=== PATIENT | female | born 2005 | race Caucasian/White ===

== ENCOUNTER 2025-06-19 19:58 | Inpatient (IN) | payer MEDICAID, SELFPAY ==
--- NOTE | ~2025-06-19 | MR_ITS ---
EXAMINATION: MRCP HISTORY: choledocholithiasis COMPARISON: There are no prior studies available for comparison. TECHNIQUE: Axial gradient echo in and out of phase T1, axial T2 and fat suppressed T2, and coronal haste T2 with fat saturation images were obtained through the abdomen. 3D MRCP Reconstructed images and thick slab imaging of the biliary tree were obtained. FINDINGS: There is no significant signal loss within the liver on opposed phase imaging to suggest steatosis. There is no intrahepatic biliary ductal dilatation. No foci of abnormal signal intensity are identified. There is cholelithiasis. There is a small amount of pericholecystic fluid. No gallbladder wall thickening. The common bile duct is normal in caliber. No intraluminal filling defects are identified to suggest choledocholithiasis. The pancreas has an unremarkable unenhanced appearance. The pancreatic duct is normal in caliber.. The spleen, adrenals, and kidneys are unremarkable. There are prominent lymph nodes in the right lower quadrant measuring up to 13 mm in size. The visualized bones demonstrate normal marrow signal intensity. MR/MR MRCP IMPRESSION: 1. Cholelithiasis and a small amount of pericholecystic fluid. If there is clinical concern for acute cholecystitis, HIDA scan could be performed. 2. No evidence of choledocholithiasis. Electronically signed by: Sonu Hart MD 06/20/2025 12:52 PM EDT
[2025-06-19 20:06] VITALS: BP 116/76; PULSE 76; RESP 20; TEMP 36.6; O2SAT 97; BMI 30.4
[2025-06-19 20:25] LABS: MANUAL DIFF FLAG NO
[2025-06-19 20:27] LABS: Hematocrit 38.2 % (37.0-47.0); Hemoglobin 12.0 g/dl (12.0-16.0); Imm Gran Abs Auto 0.02 X10*3/uL (0.00-0.03); Imm Gran Pct Auto 0.3 % (0.0-0.4); Lymphocytes Absolute Auto 1.3 X10*3/uL (1.2-4.9); Mean Corpuscular HGB Conc 31.4 g/dl (31.0-35.0); Mean Corpuscular Hemoglobin 25.4 pg (27.0-33.0); Mean Corpuscular Volume 80.9 fL (80.0-98.0); NRBC Abs Auto 0.000 X10*3/uL (0.0-0.012); NRBC Pct Auto 0.0 /100WBC (0.0-0.2); Platelet Count 396 X10*3/uL (160-400); Red Blood Count 4.72 X10*6/uL (4.20-5.50); White Blood Count 6.6 X10*3/uL (4.8-10.8)
[2025-06-19 20:44] LABS: Alanine Aminotransferase 605 U/L (0-31); Albumin Level 4.3 g/dL (3.5-5.0); Alkaline Phosphatase 124 U/L (39-117); Anion Gap 12 (12-20); Aspartate Amino Transferase 618 U/L (5-31); Blood Urea Nitrogen 8 mg/dL (9-16); Calcium 9.5 mg/dL (8.4-10.2); Carbon Dioxide 26 mmol/L (22-29); Chloride 107 mmol/L (96-108); Creatinine Clr Calc Pharmacy 125.4; Estimated Glomerular Filt Rate > 60; Potassium 3.7 mmol/L (3.3-5.1); Sodium 141 mmol/L (135-145); Total Protein 7.8 g/dL (6.5-8.0)
--- NOTE | 2025-06-19 23:40 | ED.ABDPAIN ---
HPI - Abdominal Pain General Chief Complaint: Abdominal Pain Stated Complaint: upper right abd pain/goes to the back/vomit/sob Time Seen by Provider: 06/19/25 23:10 History of Present Illness ED Provider: Ryan Hernandez MD HPI narrative: 20-year-old female with right upper quadrant pain mostly postprandial and in the evenings over the last 2 weeks. No jaundice. No usha-colored stools. No prior surgical or other abdominal history. She denies nausea vomiting fever night sweats or other constitutional symptoms Related Data Allergies Allergy/AdvReac Type Severity Reaction Status Date / Time No Known Allergies Allergy Verified 06/19/25 20:08 [facility] Social History Social History Patient Tobacco Use Status: Never used Tobacco Smoked in Last 30 Days: No Use of substances other than those prescribed or required for medical reasons: No Advance Directives: No Advance Directives Information Provided: Yes Nutrition Risks: No Nutritional Risk Patient : No Physical Exam ED Exam Exam: EXAM: Gen: Alert, awake, well appearing, well hydrated. Head: Atraumatic Eyes: Anicteric, Normal conjunctiva. ENT: Moist mucosa, no pallor. ? Neck: Supple. Skin: ?No observable rash or bruising on exposed or examined skin Respiratory: Breathing comfortably, No distress.Clear to auscultation bilaterally, symmetric chest expansion, No wheeze, rales, ronchi. Cardiovascular: Regular rate and rhythm. No murmurs or rub. Well perfused periphery, warm extremities. No edema. ? Abdominal: Mild right upper quadrant tenderness.. Soft, no objective distension. No palpable masses or obvious organomegaly. ?No guarding, no rebound tenderness or other peritoneal findings. : No flank tenderness. Neuro: Alert. Gross movement of all extremities intact. ? Psych: Calm. Cooperative. MSK: No grossly visible deformity. Vital signs: See flowsheet Vital Signs: Vital Signs - 24 hr 06/19/25 20:06 Temperature 97.8 F Pulse Rate 76 Respiratory Rate 20 Blood Pressure 116/76 Pulse Oximetry 97 Oxygen Delivery Method Room Air BMI result Body Mass Index 30.4 Procedures Procedure Narrative Procedure Narrative: EMERGENCY ULTRASOUND INTERPRETATION- Limited Point of Care Biliary [This study was ordered, performed, and interpreted by myself. The study reveals: Impression: Evidence of gallstones and dilated CBD. No signs of cholecystitis [Indication: RUQ PAIN Gallbladder: Small and dependent/shadowing gallstones in the fundus. NO WALL THICKENING > 4MM, NO PERICHOLECYSTIC FLUID, NOT GROSSLY DILATED/HYDROPIC. -Additional: WALL MEASUREMENT: Less than 4 mm CBD MEASURMENT IF OBTAINED: 8.7 mm Performed by: Ryan Hernandez MD Images were stored CPT:09369] Sample still images below of GB with stones and CBD. Additional clips and images formally stored in the PACS system. Medical Decision Making Medical Decision Making MDM Narrative: Medical Decision Making: Young healthy female with postprandial and evening right upper quadrant pain going on for about 2 weeks. Working diagnosis is choledocholithiasis/cholelithiasis. She has mild transaminitis, mild alk-phos elevation and slight bilirubin elevation. She is anicteric and well-appearing. No signs of cholecystitis or cholangitis. CBD is 8.7 mm no distinct stone seen though this is very likely to be the cause of obstruction Overnight hours and given the patient's well appearance I think GI consultation and likely MRCP and/or ERCP can be deferred to the a.m.. I will make the patient NPO Preliminary Favored Differential Diagnosis: Choledocholithiasis, cholelithiasis, cholecystitis, PUD, gastritis among additional considered etiologies Testing Interpreted Independently: ?See below for details Radiology or Lab testing Results Reviewed: ?See below for details Consults: ?See below for details Independent Historians/External Chart Reviews: ?See below for details Social Determinants of Health Impacting MDM/Planning: ?See below for details Consult Healthcare Provider Management of the patient was discussed with: Hospitalist Lab Data MDM Lab Attestation statement: I reviewed the patient's lab results. 06/20/25 04:40 06/19/25 20:20 Labs: Lab Results 06/19/25 Range/Units 20:20 WBC 6.6 (4.8-10.8) X10*3/uL RBC 4.72 (4.20-5.50) X10*6/uL Hgb 12.0 (12.0-16.0) g/dl Hct 38.2 (37.0-47.0) % MCV 80.9 (80.0-98.0) fL MCH 25.4 L (27.0-33.0) pg MCHC 31.4 (31.0-35.0) g/dl RDW 14.3 (11.0-16.0) % Plt Count 396 (160-400) X10*3/uL MPV 9.2 L (9.4-12.3) fL Immature Gran % (Auto) 0.3 (0.0-0.4) % Neut % (Auto) 71.7 (45-73) % Lymph % (Auto) 19.4 L (20-40) % Vernon % (Auto) 7.1 (2-11) % Eos % (Auto) 0.9 (0-4) % Baso % (Auto) 0.6 (0-2) % Lymph # (Auto) 1.3 (1.2-4.9) X10*3/uL [place] # (Auto) 0.5 (0.1-1.2) X10*3/uL Eos # (Auto) 0.1 (0.0-0.4) X10*3/uL Baso # (Auto) 0.0 (0.0-0.2) X10*3/uL Abs Immat Gran (auto) 0.02 (0.00-0.03) X10*3/uL Absolute Neuts (auto) 4.8 (2.0-8.3) x10*3/uL Absolute Nucleated RBC 0.000 (0.0-0.012) X10*3/uL Nucleated RBC % (auto) 0.0 (0.0-0.2) /100WBC Sodium 141 (135-145) mmol/L Potassium 3.7 (3.3-5.1) mmol/L Chloride 107 (96-108) mmol/L Carbon Dioxide 26 (22-29) mmol/L Anion Gap 12 (12-20) BUN 8 L (9-16) mg/dL Creatinine 0.68 (0.5-1.4) mg/dL Estim Creat Clear Calc 125.4 Estimated GFR > 60 Random Glucose 101 (60-115) mg/dL Calcium 9.5 (8.4-10.2) mg/dL Total Bilirubin 1.8 H (0.0-1.0) mg/dL AST 618 H (5-31) U/L ALT 605 H (0-31) U/L Alkaline Phosphatase 124 H (39-117) U/L Total Protein 7.8 (6.5-8.0) g/dL Albumin 4.3 (3.5-5.0) g/dL Medications Administered Generic Name Dose Route Start Last Admin Trade Name Freq PRN Reason Stop Dose Admin Dextrose/Sodium Chloride 1,000 mls @ 100 mls/hr 06/20/25 00:15 06/20/25 01:14 D51/2ns IVCONT 100 mls/hr .Q10H BRO Administration Discharge Plan Discharge Clinical Impression: Abdominal pain
--- NOTE | 2025-06-20 00:21 | P.HPHOSP_ITS ---
History of Present Illness Date of Service: 06/20/25 Chief Complaint: abd pain 20-year-old female with no significant past medical history presented to the hospital today with a chief complaint of right upper quadrant abdominal pain. Patient mentioned that for few weeks she has been having right upper quadrant abdominal pain which is intermittent in nature happens once a week associated nausea and resolves last for about a day. But over the past couple of weeks she has been having more increased frequency at least 3 times a week and last night she had severe episode that is why she became to the ER for further evaluation. Denies any fevers. Denies any sick contacts. Denies any diarrhea. Denies any chest pain or palpitations. Denies any abdominal pain at the time of my interview. Review of all other systems is negative except mentioned above ER course: Per ER team, patient noted to have right upper quadrant tenderness; bedside ultrasound showed concerns for choledocholithiasis. Liver enzymes elevated. PMFSH Social History Patient Tobacco Use Status: Never used Tobacco Smoked in Last 30 Days: No Use of substances other than those prescribed or required for medical reasons: No Advance Directives: No Advance Directives Information Provided: Yes Nutrition Risks: No Nutritional Risk Patient : No Meds Allergies Allergy/AdvReac Type Severity Reaction Status Date / Time No Known Allergies Allergy Verified 06/19/25 20:08 Active Medications: Current Medications Enoxaparin Sodium (Enoxaparin Sodium 40 Mg/0.4 Ml Syringe) 40 mg SUBCUT Q24H BRO Hydromorphone HCl (Hydromorphone Hcl 1 Mg/Ml Syringe) 0.5 mg IVPUSH Q4H PRN; Protocol PRN Reason: Pain, Severe (Pain Scale 7-10) Dextrose/Sodium Chloride (D51/2ns) 1,000 mls @ 100 mls/hr IVCONT .Q10H BRO Polyethylene Glycol (Polyethylene Glycol 3350 17 Gm Powd.Pack) 17 gm PO DAILY PRN PRN Reason: Constipation Sodium Chloride (0.9 % Sodium Chloride Flush 3 Ml Syringe) 3 ml IVFLUSH QSHIFT BRO Physical Exam 2 Vital Signs and Narrative: Vital Signs: Last Vital Signs Temp 97.8 F 06/19/25 20:06 Pulse 76 06/19/25 20:06 Resp 20 06/19/25 20:06 BP 116/76 06/19/25 20:06 Pulse Ox 97 06/19/25 20:06 O2 Del Method Room Air 06/19/25 20:06 BMI result Body Mass Index 30.4 Gen: Appears be in no acute distress HEENT: NCAT, Moist mucosa. Pulmonary: Vesicular breath sounds, fair air entry CVS: Normal S1-S2 Abdomen: BS+, Soft, Nontender Extremities: Warm well perfused Neuro: Alert and awake. Results Labs 06/20/25 04:40 06/20/25 04:40 Labs: Laboratory Results - last 24 hr 06/19/25 20:20 MCV 80.9 MCH 25.4 L MCHC 31.4 RDW 14.3 Plt Count 396 MPV 9.2 L Immature Gran % (Auto) 0.3 Neut % (Auto) 71.7 Lymph % (Auto) 19.4 L [place] % (Auto) 7.1 Eos % (Auto) 0.9 Baso % (Auto) 0.6 Lymph # (Auto) 1.3 [place] # (Auto) 0.5 Eos # (Auto) 0.1 Baso # (Auto) 0.0 Abs Immat Gran (auto) 0.02 Absolute Neuts (auto) 4.8 Absolute Nucleated RBC 0.000 Nucleated RBC % (auto) 0.0 Anion Gap 12 Estim Creat Clear Calc 125.4 Estimated GFR > 60 Random Glucose 101 Calcium 9.5 Total Bilirubin 1.8 H AST 618 H ALT 605 H Alkaline Phosphatase 124 H Total Protein 7.8 Albumin 4.3 Assessment and Plan (1) Abdominal pain: Qualifiers: Abdominal location: right upper quadrant Qualified Code(s): R10.11 - Right upper quadrant pain Status: Acute Plan 20-year-old female with no significant past medical history presented to the hospital today with a chief complaint of right upper quadrant abdominal pain. Admitted for following Right upper quadrant abdominal pain: Gallstones: Dilated CBD: Transaminitis: Suspected choledocholithiasis: Pain control Trend liver enzymes Gastroenterology consult MRCP Lipase ordered Acute hepatitis panel DVT prophylaxis: Lovenox Code status: Full code Quality Stroke Does the patient have a stroke diagnosis?: No VTE Prior VTE?: No VTE Risk Level:: Medical - moderate - high VTE Device Contraindication: Treatment Not Indicated VTE Drug Contraindication: N/A - Med Ordered
[2025-06-20] MEDS: Dextrose 5 % and 0.45 % NaCl 1,000 ML 100 ML IVCONT ×3 (01:14→22:54)
[2025-06-20 01:16] VITALS: BP 117/69; PULSE 85; RESP 18; TEMP 36.7; O2SAT 98
[2025-06-20 05:21] LABS: MANUAL DIFF FLAG NO
[2025-06-20 05:22] LABS: Hematocrit 36.3 % (37.0-47.0); Hemoglobin 11.6 g/dl (12.0-16.0); Imm Gran Abs Auto 0.02 X10*3/uL (0.00-0.03); Imm Gran Pct Auto 0.3 % (0.0-0.4); Lymphocytes Absolute Auto 1.6 X10*3/uL (1.2-4.9); Mean Corpuscular HGB Conc 32.0 g/dl (31.0-35.0); Mean Corpuscular Hemoglobin 25.8 pg (27.0-33.0); Mean Corpuscular Volume 80.7 fL (80.0-98.0); NRBC Abs Auto 0.000 X10*3/uL (0.0-0.012); NRBC Pct Auto 0.0 /100WBC (0.0-0.2); Platelet Count 376 X10*3/uL (160-400); Red Blood Count 4.50 X10*6/uL (4.20-5.50); White Blood Count 7.1 X10*3/uL (4.8-10.8)
[2025-06-20 05:47] LABS: Alanine Aminotransferase 586 U/L (0-31); Albumin Level 3.9 g/dL (3.5-5.0); Alkaline Phosphatase 141 U/L (39-117); Anion Gap 10 (12-20); Aspartate Amino Transferase 423 U/L (5-31); Blood Urea Nitrogen 7 mg/dL (9-16); Calcium 9.0 mg/dL (8.4-10.2); Carbon Dioxide 25 mmol/L (22-29); Chloride 109 mmol/L (96-108); Creatinine Clr Calc Pharmacy 135.4; Estimated Glomerular Filt Rate > 60; Potassium 4.2 mmol/L (3.3-5.1); Sodium 140 mmol/L (135-145); Total Protein 7.2 g/dL (6.5-8.0)
[2025-06-20 07:07] LABS: Lipase 553 U/L (8-78)
--- NOTE | 2025-06-20 07:39 | P.CNGI_ITS ---
History of Present Illness Data of Consult Service Date: 06/20/25 Requesting physician: Tony Vargas Primary Care Provider: None Physician HPI Reason for consult: Choledocholithiasis 20-year-old healthy female seen at [facility] ED on 06/19/25 with right upper quadrant abdominal pain. Patient reported a 2 month hx of intermittent RUQ pain and nausea once a week associated nausea and last for about a day. She noted increased frequency of abdominal pain to at least 3 times a week over the past few weeks. Last night she had severe episode which lasted all day and pt came to the ER for further evaluation. Pt tried acetaminophen and ibuprofen for the pain which was not helpful Patient denied fevers, sick contacts, diarrhea, chest pain or palpitations. Labs revealed elevated LFTs Patient admits to vaping and denies ETOH abuse or taking marijuana She works at [employer]. Pt's Mom had a Lap Emily for gallstones. She denies known family history of colon polyps or GI malignancy. ER course: Per ER team, patient noted to have right upper quadrant tenderness; bedside ultrasound showed concerns for choledocholithiasis. Review of Systems 2 Review of Systems: Yes all other systems are reviewed and are [facility] Social History Social History Patient Tobacco Use Status: Never used Tobacco Smoked in Last 30 Days: No Use of substances other than those prescribed or required for medical reasons: No Advance Directives: No Advance Directives Information Provided: Yes Nutrition Risks: No Nutritional Risk Patient : No service: No Meds Allergies Allergy/AdvReac Type Severity Reaction Status Date / Time No Known Allergies Allergy Verified 06/19/25 20:08 Active Medications: Current Medications Acetaminophen (Acetaminophen 325 Mg Tablet) 650 mg PO Q6H PRN PRN Reason: Pain, Mild 1-3,fever,headache Calcium Carbonate (Calcium Carbonate 750 Mg Tab.Chew) 750 mg PO Q4H PRN PRN Reason: Heartburn Enoxaparin Sodium (Enoxaparin Sodium 40 Mg/0.4 Ml Syringe) 40 mg SUBCUT Q24H BRO Hydromorphone HCl (Hydromorphone Hcl 1 Mg/Ml Syringe) 0.5 mg IVPUSH Q4H PRN; Protocol PRN Reason: Pain, Severe (Pain Scale 7-10) Dextrose/Sodium Chloride (D51/2ns) 1,000 mls @ 100 mls/hr IVCONT .Q10H BRO Last Admin: 06/20/25 01:14 Dose: 100 mls/hr Magnesium Hydroxide (Milk Of Magnesia 30 Ml Oral.Susp) 30 ml PO DAILY PRN PRN Reason: Constipation Melatonin (Melatonin 3 Mg Tablet) 6 mg PO BEDTIME PRN PRN Reason: Insomnia Polyethylene Glycol (Polyethylene Glycol 3350 17 Gm Powd.Pack) 17 gm PO DAILY PRN PRN Reason: Constipation Sodium Chloride (0.9 % Sodium Chloride Flush 3 Ml Syringe) 3 ml IVFLUSH QSHIFT [facility] Last Admin: 06/20/25 07:25 Dose: Not Given Physical Exam 2 Vital Signs: Vital Signs: Last Vital Signs Temp 98.1 F 06/20/25 01:16 Pulse 85 06/20/25 01:16 Resp 18 06/20/25 01:16 BP 117/69 06/20/25 01:16 Pulse Ox 98 06/20/25 01:16 O2 Del Method Room Air 06/20/25 01:16 BMI result Body Mass Index 30.4 Const: General: healthy appearing and no acute distress Nutritional Appearance: obese Orientation/consciousness: patient oriented x3 L imitations: no limitations HEENT: Head: Yes normal to inspection Ears: hearing grossly normal bilaterally Eyes: Sclerae: sclerae normal Pupils: Equal, round and reactive pupils present Neck: Neck: Yes normal visual inspection Chest: Chest palpation & inspection: normal inspection of the chest Resp: Effort & Inspection: normal respiratory effort Auscultation: clear to auscultation bilaterally Cardio: Palpation: normal PMI Rate: regular rate Rhythm: regular rhythm Heart sounds: S1 normal heart sound present, S2 normal heart sound present and no murmurs GI: Palpation (GI): Soft to palpation, nontender and No hepatosplenomegaly present Auscultation: normal bowel sounds Rectal Exam - Female: deferred Skin: General skin exam: no rashes or lesions noted Neuro: General: patient oriented x3, gait normal and moves all extremities Cranial nerves: Yes Equal, round and reactive pupils present Psych: Appearance: grossly normal Mental Status: mental status grossly normal Results Labs 06/20/25 04:40 06/20/25 04:40 Labs: Short CBC 06/19/25 06/20/25 Range/Units 20:20 04:40 WBC 6.6 7.1 (4.8-10.8) X10*3/uL Hgb 12.0 11.6 L (12.0-16.0) g/dl Hct 38.2 36.3 L (37.0-47.0) % Plt Count 396 376 (160-400) X10*3/uL BMP 06/19/25 06/20/25 20:20 04:40 Sodium 141 140 Potassium 3.7 4.2 Chloride 107 109 H Carbon Dioxide 26 25 BUN 8 L 7 L Creatinine 0.68 0.63 Calcium 9.5 9.0 Liver Function 06/19/25 06/20/25 Range/Units 20:20 04:40 Total Bilirubin 1.8 H 2.7 H (0.0-1.0) mg/dL AST 618 H 423 H (5-31) U/L ALT 605 H 586 H (0-31) U/L Alkaline Phosphatase 124 H 141 H (39-117) U/L Albumin 4.3 3.9 (3.5-5.0) g/dL Assessment and Plan (1) Elevated LFTs: Status: Acute (2) Gallstone: Qualifiers: Cholecystitis presence: with cholecystitis Cholecystitis acuity: acute Biliary obstruction: without biliary obstruction Qualified Code(s): K80.00 - Calculus of gallbladder with acute cholecystitis without obstruction Status: Acute (3) Abdominal pain: Qualifiers: Abdominal location: right upper quadrant Qualified Code(s): R10.11 - Right upper quadrant pain Status: Acute Plan 20-year-old healthy female admitted to [facility] on 06/19/25 with 2 month history of intermittent right upper quadrant abdominal pain and nausea. Labs showed elevated LFTs and slightly elevated lipase. A bedside ultrasound showed choledocholithiasis. Patient reports resolution of abdominal pain indicating she likely passed a stone. 06/20/25 MRCP SHOWED: 1. Cholelithiasis and a small amount of pericholecystic fluid. If there is clinical concern for acute cholecystitis, HIDA scan could be performed. 2. No evidence of choledocholithiasis. RECOMMENDATIONS: 1. Agree with IV pain medications and anti-emetics for recurrent pain and nausea 2. Evaluation for Lap Emily by general surgery. Procedures Date of Service Date of Service: 06/20/25
--- NOTE | 2025-06-20 08:12 | PHA.MEDREC ---
Pharmacy Consult ? Medication Reconciliation Pharmacy has completed the medication reconciliation. pt confirmed no home meds
--- NOTE | 2025-06-20 09:00 | PC.NURSE ---
Pt made aware that she needs to remain NPO until after MRI
[2025-06-20 09:24] LABS: HBS Num1 4.94 mIU/mL (0-7.99); HBc Num1 0.07 S/CO (0.00-0.79); HBsAGNum1 0.38 S/CO (0.00-0.99); Hepatitis A Antibody IgM 0.32 Index (0-0.79); Hepatitis B Surface Antigen Negative (Negative); ~HepC Num1 0.09 S/CO (0.00-0.79); ~Hepatitis A Antibody IgM Nonreactive (Nonreactive); ~Hepatitis B Surface Antibody NONREACTIVE (Nonreactive); ~Hepatitis C Antibody Nonreactive (Nonreactive)
--- NOTE | 2025-06-20 11:35 | PC.NURSE ---
Pt completed MRI screening form, form sent to MRI . pt resting quietly, verbalizes no needs at this time
--- NOTE | 2025-06-20 12:15 | PC.NURSE ---
Pt off the floor to MRI
[2025-06-20 13:14] VITALS: BP 116/73; PULSE 86; RESP 18; TEMP 36.9; O2SAT 99
--- NOTE | 2025-06-20 13:36 | P.PNIM_ITS ---
Subjective Subjective Date of Service: 06/20/25 Interval History: No pain this morning Physical Exam 2 Vital Signs: Vital Signs: Last Vital Signs Temp 98.5 F 06/20/25 13:14 Pulse 86 06/20/25 13:14 Resp 18 06/20/25 13:14 BP 116/73 06/20/25 13:14 Pulse Ox 99 06/20/25 13:14 O2 Del Method Room Air 06/20/25 13:14 BMI result Body Mass Index 30.4 Const: Other: General: AO X 3, no acute distress Resp: CTA bilateral CVS: S1,S2,RRR GI: +BS, NT, no distention Skin: No rash Neuro: motor grossly intact Psych: appropriate affect Objective Data Active Medications Acetaminophen (Acetaminophen 325 Mg Tablet) 650 mg PO Q6H PRN PRN Reason: Pain, Mild 1-3,fever,headache Calcium Carbonate (Calcium Carbonate 750 Mg Tab.Chew) 750 mg PO Q4H PRN PRN Reason: Heartburn Enoxaparin Sodium (Enoxaparin Sodium 40 Mg/0.4 Ml Syringe) 40 mg SUBCUT Q24H [facility] Last Admin: 06/20/25 08:30 Dose: 40 mg Documented By: DARRICK Hydromorphone HCl (Hydromorphone Hcl 1 Mg/Ml Syringe) 0.5 mg IVPUSH Q4H PRN; Protocol PRN Reason: Pain, Severe (Pain Scale 7-10) Dextrose/Sodium Chloride (D51/2ns) 1,000 mls @ 100 mls/hr IVCONT .Q10H [facility] Last Admin: 06/20/25 11:23 Dose: 100 mls/hr Documented By: DARRICK Magnesium Hydroxide (Milk Of Magnesia 30 Ml Oral.Susp) 30 ml PO DAILY PRN PRN Reason: Constipation Melatonin (Melatonin 3 Mg Tablet) 6 mg PO BEDTIME PRN PRN Reason: Insomnia Polyethylene Glycol (Polyethylene Glycol 3350 17 Gm Powd.Pack) 17 gm PO DAILY PRN PRN Reason: Constipation Sodium Chloride (0.9 % Sodium Chloride Flush 3 Ml Syringe) 3 ml IVFLUSH QSHIFT [facility] Last Admin: 06/20/25 07:25 Dose: Not Given Documented By: DARRICK Non-Admin Reason: IV Running Labs 06/20/25 04:40 06/20/25 04:40 Labs: Laboratory Results - last 24 hr 06/19/25 06/20/25 06/20/25 20:20 04:40 08:43 MCV 80.9 80.7 MCH 25.4 L 25.8 L MCHC 31.4 32.0 RDW 14.3 14.3 Plt Count 396 376 MPV 9.2 L 9.6 Immature Gran % (Auto) 0.3 0.3 Neut % (Auto) 71.7 65.6 Lymph % (Auto) 19.4 L 22.2 [place] % (Auto) 7.1 9.2 Eos % (Auto) 0.9 2.0 Baso % (Auto) 0.6 0.7 Lymph # (Auto) 1.3 1.6 [place] # (Auto) 0.5 0.7 Eos # (Auto) 0.1 0.1 Baso # (Auto) 0.0 0.1 Abs Immat Gran (auto) 0.02 0.02 Absolute Neuts (auto) 4.8 4.6 Absolute Nucleated RBC 0.000 0.000 Nucleated RBC % (auto) 0.0 0.0 Anion Gap 12 10 L Estim Creat Clear Calc 125.4 135.4 Estimated GFR > 60 > 60 Random Glucose 101 110 Calcium 9.5 9.0 Total Bilirubin 1.8 H 2.7 H AST 618 H 423 H ALT 605 H 586 H Alkaline Phosphatase 124 H 141 H Total Protein 7.8 7.2 Albumin 4.3 3.9 Lipase 553 H Hepatitis A IgM Ab Nonreactive Hep Bs Antigen Negative Hep Bs Antibody NONREACTIVE Hep B Core Total Ab Nonreactive Hepatitis C Ab (EIA) Nonreactive Assessment and Plan (1) Gallstone: Status: Acute Plan 20-year-old female with no significant past medical history presented to the hospital today with a chief complaint of right upper quadrant abdominal pain. Admitted for following Right upper quadrant abdominal pain Gallstones pancreatitis Dilated CBD: Transaminitis: LFTs trending down Suspected choledocholithiasis MRCP negative Pain control Trend liver enzymes Gastroenterology recommend surgery consult Surgery consult for CCY DVT prophylaxis: Lovenox Code status: Full code Quality Stroke Does the patient have a stroke diagnosis?: No VTE Prior VTE?: No VTE Risk Level:: Medical - moderate - high VTE Device Contraindication: Treatment Not Indicated VTE Drug Contraindication: N/A - Med Ordered
--- NOTE | 2025-06-20 14:33 | MHC.CM.PN ---
Patient lives in a home w/ her mother. Functionally independent. Denies use of DME or services. PCP @ [facility] No HCP. CM provided information and offered assistance. Patient declined. DP: Home self care. Car in lot for self transport if safe to do so. Mother can also transport. CM will continue to follow.
--- NOTE | 2025-06-20 16:10 | P.CONGS_ITS ---
History of Present Illness Consult details Consult date: 06/20/25 Requesting physician: Alberto Martin Narrative: 20-year-old female patient presenting with a several week history of abdominal pain located mainly in the epigastrium and right upper quadrant. At 1st the pain was episodic and seemed to be associated with her diet. Over the past week the pain has become more frequent and severe and associated with nausea and vomiting without fever or chills. She denies any diarrhea or constipation. She subsequently presented to the emergency department for further evaluation and was noted to be tender in the right upper quadrant. Laboratories revealed elevated LFTs including bilirubin. MRI performed today revealed gallstones within the gallbladder as well as pericholecystic fluid consistent with acute cholecystitis. Common bile duct dilatation and common bile duct stones were not identified. Surgical consultation was requested for possible cholecystectomy. The patient currently feels improved with no abdominal pain, nausea or vomiting. She reports being hungry. Review of Systems 2 Review of Systems: Yes all other systems are reviewed and are negative PMFSH Social History Social History Patient Tobacco Use Status: Never used Tobacco Smoked in Last 30 Days: No Use of substances other than those prescribed or required for medical reasons: No Advance Directives: No Advance Directives Information Provided: Yes Nutrition Risks: No Nutritional Risk Patient : No service: No Meds Allergies Allergy/AdvReac Type Severity Reaction Status Date / Time No Known Allergies Allergy Verified 06/19/25 20:08 Active Medications: Current Medications Acetaminophen (Acetaminophen 325 Mg Tablet) 650 mg PO Q6H PRN PRN Reason: Pain, Mild 1-3,fever,headache Calcium Carbonate (Calcium Carbonate 750 Mg Tab.Chew) 750 mg PO Q4H PRN PRN Reason: Heartburn Enoxaparin Sodium (Enoxaparin Sodium 40 Mg/0.4 Ml Syringe) 40 mg SUBCUT Q24H [facility] Last Admin: 06/20/25 08:30 Dose: 40 mg Hydromorphone HCl (Hydromorphone Hcl 1 Mg/Ml Syringe) 0.5 mg IVPUSH Q4H PRN; Protocol PRN Reason: Pain, Severe (Pain Scale 7-10) Dextrose/Sodium Chloride (D51/2ns) 1,000 mls @ 100 mls/hr IVCONT .Q10H [facility] Last Admin: 06/20/25 11:23 Dose: 100 mls/hr Magnesium Hydroxide (Milk Of Magnesia 30 Ml Oral.Susp) 30 ml PO DAILY PRN PRN Reason: Constipation Melatonin (Melatonin 3 Mg Tablet) 6 mg PO BEDTIME PRN PRN Reason: Insomnia Polyethylene Glycol (Polyethylene Glycol 3350 17 Gm Powd.Pack) 17 gm PO DAILY PRN PRN Reason: Constipation Sodium Chloride (0.9 % Sodium Chloride Flush 3 Ml Syringe) 3 ml IVFLUSH QSHIFT [facility] Last Admin: 06/20/25 07:25 Dose: Not Given Physical Exam 2 Vital Signs: Vital Signs: Last Vital Signs Temp 98.5 F 06/20/25 13:14 Pulse 86 06/20/25 13:14 Resp 18 06/20/25 13:14 BP 116/73 06/20/25 13:14 Pulse Ox 99 06/20/25 13:14 O2 Del Method Room Air 06/20/25 13:14 BMI result Body Mass Index 30.4 Const: General: cooperative and no acute distress Nutritional Appearance: w ell nourished Orientation/consciousness: patient oriented x3 Limitations: no limitations HEENT: Head: Yes normocephalic and Yes atraumatic Ears: hearing grossly normal bilaterally Resp: Effort & Inspection: normal respiratory effort, no audible wheezes, no cough and no respiratory distress Cardio: Jugular venous distension: no JVD GI: Inspection: Yes normal to inspection Palpation (GI): Soft to palpation, nontender, no guarding, not rigid and No hepatosplenomegaly present P ercussion: Yes normal to percussion Auscultation: normal bowel sounds R ectal Exam - Female: deferred Skin: Other: Warm, dry, no rash Neuro: General: patient oriented x3 Extrem: General: Yes no clubbing, cyanosis or edema Results Labs 06/20/25 04:40 06/20/25 04:40 Labs: Abnormal lab results 06/19/25 06/20/25 Range/Units 20:20 04:40 Hgb 11.6 L (12.0-16.0) g/dl Hct 36.3 L (37.0-47.0) % MCH 25.4 L 25.8 L (27.0-33.0) pg MPV 9.2 L (9.4-12.3) fL Lymph % (Auto) 19.4 L (20-40) % Chloride 109 H (96-108) mmol/L Anion Gap 10 L (12-20) BUN 8 L 7 L (9-16) mg/dL Total Bilirubin 1.8 H 2.7 H (0.0-1.0) mg/dL AST 618 H 423 H (5-31) U/L ALT 605 H 586 H (0-31) U/L Alkaline Phosphatase 124 H 141 H (39-117) U/L Lipase 553 H (8-78) U/L Short CBC 06/19/25 06/20/25 Range/Units 20:20 04:40 WBC 6.6 7.1 (4.8-10.8) X10*3/uL Hgb 12.0 11.6 L (12.0-16.0) g/dl Hct 38.2 36.3 L (37.0-47.0) % Plt Count 396 376 (160-400) X10*3/uL BMP 06/19/25 06/20/25 20:20 04:40 Sodium 141 140 Potassium 3.7 4.2 Chloride 107 109 H Carbon Dioxide 26 25 BUN 8 L 7 L Creatinine 0.68 0.63 Calcium 9.5 9.0 Liver Function 06/19/25 06/20/25 Range/Units 20:20 04:40 Total Bilirubin 1.8 H 2.7 H (0.0-1.0) mg/dL AST 618 H 423 H (5-31) U/L ALT 605 H 586 H (0-31) U/L Alkaline Phosphatase 124 H 141 H (39-117) U/L Albumin 4.3 3.9 (3.5-5.0) g/dL All other labs normal. Assessment and Plan (1) Elevated LFTs: Status: Acute (2) Gallstone: Qualifiers: Cholecystitis presence: with cholecystitis Cholecystitis acuity: acute Biliary obstruction: without biliary obstruction Qualified Code(s): K80.00 - Calculus of gallbladder with acute cholecystitis without obstruction Status: Acute (3) Abdominal pain: Qualifiers: Abdominal location: right upper quadrant Qualified Code(s): R10.11 - Right upper quadrant pain Status: Acute Plan 20-year-old female patient presenting with a recurrent episodes of biliary colic found on workup to have elevated LFTs, gallstones but no evidence of common bile duct stone. Findings are suggestive of possible acute cholecystitis due to cholelithiasis. I discussed the treatment options including dietary restriction verses laparoscopic or possible open cholecystectomy. I reviewed the procedure, risks, and alternatives in detail and she consents to a laparoscopic or possible open cholecystectomy. She has been added onto the operative schedule for tomorrow. She may have clear liquids tonight until midnight. Procedures Date of Service Date of Service: 06/20/25
[2025-06-20 17:34] VITALS: BP 114/76; PULSE 93; RESP 18; TEMP 36.4; O2SAT 98
[2025-06-20 18:01] VITALS: BMI 30.2
[2025-06-20 20:00] VITALS: BP 115/73; PULSE 75; RESP 18; TEMP 36.5; O2SAT 97
[2025-06-21] VITALS (9 sets, daily range): BP systolic 102–131; BP diastolic 51–85; PULSE 70–89; RESP 14–18; TEMP 36.2–36.7; O2SAT 96–100
[2025-06-21 06:57] LABS: Alanine Aminotransferase 432 U/L (0-31); Albumin Level 3.8 g/dL (3.5-5.0); Alkaline Phosphatase 157 U/L (39-117); Aspartate Amino Transferase 133 U/L (5-31); Lipase 39 U/L (8-78); Total Protein 7.1 g/dL (6.5-8.0)
[2025-06-21] MEDS: Dextrose 5 % and 0.45 % NaCl 1,000 ML 100 ML IVCONT ×2 (09:24→22:27)
--- NOTE | 2025-06-21 11:21 | MHC.CM.PN ---
Patient not medically cleared for dc. CM will continue to follow.
--- NOTE | 2025-06-21 13:41 | HO.ANESPROP2 ---
PMFSH Active Problems Active Problems: All Active Problems Gallstone (Acute) Elevated LFTs (Acute) Abdominal pain (Acute) Family History Family history of problems with anesthesia: No Surgical History History of Problems with Anesthesia: No Social History Social History Household Members: Family Household Members Other:: Mom Housing: House Are you a primary patient centered care specialist to a significant other at home: No Do you presently have visiting nurse or other home services: No Patient Tobacco Use Status: Current everyday Tobacco user Tobacco use type: Smokeless Tobacco e-Cigarette/Vaping Use: Currently Using Second Hand Smoke Exposure: No service: No Meds Allergies Allergy/AdvReac Type Severity Reaction Status Date / Time No Known Allergies Allergy Verified 06/21/25 12:40 Active Medications: Current Medications Acetaminophen (Acetaminophen 325 Mg Tablet) 650 mg PO Q6H PRN PRN Reason: Pain, Mild 1-3,fever,headache Calcium Carbonate (Calcium Carbonate 750 Mg Tab.Chew) 750 mg PO Q4H PRN PRN Reason: Heartburn Enoxaparin Sodium (Enoxaparin Sodium 40 Mg/0.4 Ml Syringe) 40 mg SUBCUT Q24H [facility] Last Admin: 06/21/25 07:18 Dose: Not Given Hydromorphone HCl (Hydromorphone Hcl 1 Mg/Ml Syringe) 0.5 mg IVPUSH Q4H PRN; Protocol PRN Reason: Pain, Severe (Pain Scale 7-10) Dextrose/Sodium Chloride (D51/2ns) 1,000 mls @ 100 mls/hr IVCONT .Q10H [facility] Last Infusion: 06/21/25 13:27 Dose: 0 mls/hr Magnesium Hydroxide (Milk Of Magnesia 30 Ml Oral.Susp) 30 ml PO DAILY PRN PRN Reason: Constipation Melatonin (Melatonin 3 Mg Tablet) 6 mg PO BEDTIME PRN PRN Reason: Insomnia Polyethylene Glycol (Polyethylene Glycol 3350 17 Gm Powd.Pack) 17 gm PO DAILY PRN PRN Reason: Constipation Sodium Chloride (0.9 % Sodium Chloride Flush 3 Ml Syringe) 3 ml IVFLUSH QSHIFT [facility] Last Admin: 06/21/25 07:43 Dose: Not Given Exam Exam Date and Time: 06/21/25 1340 Height,Weight and Vital Signs: Height 5 ft 2 in Weight 75 kg Last Vital Signs Temp 97.6 F 06/21/25 13:15 Pulse 72 06/21/25 13:15 Resp 18 06/21/25 13:15 BP 105/78 06/21/25 13:15 Pulse Ox 99 06/21/25 13:15 O2 Del Method Room Air 06/21/25 13:15 Pertinent Lab Results Pertinent Lab Results: Laboratory Tests 06/19/25 06/20/25 06/20/25 20:20 04:40 08:43 WBC 6.6 7.1 RBC 4.72 4.50 Hgb 12.0 11.6 L Hct 38.2 36.3 L MCV 80.9 80.7 MCH 25.4 L 25.8 L MCHC 31.4 32.0 RDW 14.3 14.3 Plt Count 396 376 MPV 9.2 L 9.6 Immature Gran % (Auto) 0.3 0.3 Neut % (Auto) 71.7 65.6 Lymph % (Auto) 19.4 L 22.2 Esmeralda % (Auto) 7.1 9.2 Eos % (Auto) 0.9 2.0 Baso % (Auto) 0.6 0.7 Lymph # (Auto) 1.3 1.6 Esmeralda # (Auto) 0.5 0.7 Eos # (Auto) 0.1 0.1 Baso # (Auto) 0.0 0.1 Abs Immat Gran (auto) 0.02 0.02 Absolute Neuts (auto) 4.8 4.6 Absolute Nucleated RBC 0.000 0.000 Nucleated RBC % (auto) 0.0 0.0 Sodium 141 140 Potassium 3.7 4.2 Chloride 107 109 H Carbon Dioxide 26 25 Anion Gap 12 10 L BUN 8 L 7 L Creatinine 0.68 0.63 Estim Creat Clear Calc 125.4 135.4 Estimated GFR > 60 > 60 Random Glucose 101 110 Calcium 9.5 9.0 Total Bilirubin 1.8 H 2.7 H Direct Bilirubin AST 618 H 423 H ALT 605 H 586 H Alkaline Phosphatase 124 H 141 H Total Protein 7.8 7.2 Albumin 4.3 3.9 Lipase 553 H Beta HCG, Quant < 2 Hepatitis A IgM Ab Nonreactive Hep Bs Antigen Negative Hep Bs Antibody NONREACTIVE Hep B Core Total Ab Nonreactive Hepatitis C Ab (EIA) Nonreactive 06/21/25 06:34 WBC RBC Hgb Hct MCV MCH MCHC RDW Plt Count MPV Immature Gran % (Auto) Neut % (Auto) Lymph % (Auto) Esmeralda % (Auto) Eos % (Auto) Baso % (Auto) Lymph # (Auto) Esmeralda # (Auto) Eos # (Auto) Baso # (Auto) Abs Immat Gran (auto) Absolute Neuts (auto) Absolute Nucleated RBC Nucleated RBC % (auto) Sodium Potassium Chloride Carbon Dioxide Anion Gap BUN Creatinine Estim Creat Clear Calc Estimated GFR Random Glucose Calcium Total Bilirubin 0.8 Direct Bilirubin 0.4 AST 133 H ALT 432 H Alkaline Phosphatase 157 H Total Protein 7.1 Albumin 3.8 Lipase 39 Beta HCG, Quant Hepatitis A IgM Ab Hep Bs Antigen Hep Bs Antibody Hep B Core Total Ab Hepatitis C Ab (EIA) Airway Mallampati Class: I TM Dist: >3cm Neck ROM: Full Loose/Missing/Broken Teeth: Yes (missing molar but no loose or broken teeth) Heart: S1S2 Lungs: CTAB Assessment and Plan Assessment Anesthesia Assessment: Anesthesia Plan Discussed and Chart Reviewed Final Anesthetic Review Family History of Problems with Anesthesia: No History of Problems with Anesthesia: No NPO: Yes ASA Class: II Final Preanesthetic Review: No Changes in Pt Med Stat, Meds/Allgs Chart Reviewed, Consent Obtained/Reviewed and Anes Risks/Benef Reviewed Patient Risk: Low Procedure Risk: Intermediate Anesthetic Plan Anesthetic Plan: GA and Agree w/ Assess. and Plan Disposition: Standard PACU
[2025-06-21] MEDS: cefoTEtan disodium 2 GM VIAL IVPUSH (14:45)
--- NOTE | 2025-06-21 15:58 | W.PM.OPN ---
Operative Note Operative Note Date of Service: 06/21/25 Narrative: Preop diagnosis-acute cholecystitis Postop diagnosis--acute cholecystitis Procedure--laparoscopic cholecystectomy Surgeon--Lidya Anesthesia--general endotracheal tube fur puller--Morro Manjarrez PA-C Patient is a 20-year-old female who presented with abdominal pain elevated LFTs tender in the right upper quadrant area. MR CP was carried out and did not reveal any choledocholithiasis and bile duct was not distended or dilated. The gallbladder was not thickened but there was some pericholecystic fluid identified. As a result patient is diagnosed with acute cholecystitis and plan is to carry out laparoscopic cholecystectomy Findings--some evidence of acute cholecystitis in regard to adhesions of stomach and duodenum onto the gallbladder Procedure-- Patient was brought to the operative room under anesthesia guidance intubated. She had compression stockings placed before induction received preoperative antibiotics. Her abdomen was prepped and draped in standard surgical fashion. An infraumbilical incision was created after numbing up the area with a 0.25% Marcaine with epinephrine dissection was carried down to the anterior abdominal wall fascia. This was grasped with Miguel Angel's and transected. The peritoneal cavity was entered. 0 Vicryl pursestring suture was used here and the [place] trocar introduced. Pneumoperitoneum was established to 15 mmHg pressure. Patient was then positioned head up left side down. The camera was introduced in the gallbladder was identified in the right upper quadrant. Two 5 mm ports were then placed under direct visualization using local in the right upper quadrant area and 1 in the epigastric area. The gallbladder was identified and grasped and retracted superiorly. Some adhesions of the stomach and duodenal tissue to the gallbladder were bluntly taken down with the [place]. Now we were able to grab the fundus and retract this laterally. The cystic duct and posterior cystic artery were identified. No other structures were noted going into the gallbladder and a decent critical view was had. The cystic duct was then clipped 3 clips down 1 up and transected. The cystic artery posteriorly was also clipped in his similar fashion with 2 clips down and 1 up and transected. Up against the edge of the liver there was another small vascular type structure which could be a posterior branch of the cystic artery and this was clipped 1 down 1 up and transected. The hook cautery was then used to take the gallbladder off the liver bed. There were some areas along the liver bed the were bleeding and cautery up to 40 was used to achieve hemostasis. The gallbladder was removed from the liver bed and placed in the laparoscopic bag and removed from the infraumbilical port site. Pneumoperitoneum was then reestablished and the liver bed examined. Cystic duct cystic artery clips were all intact and looked good. A little more cautery was used at the liver bed on some slightly oozing areas and just to reinforce an area that had been bleeding a little bit more but looked quite stable now. Suction irrigation was carried out and then the ports were removed under direct visualization. The infraumbilical port site was closed with the admission of the pursestring suture. Monocryl suture was used to approximate the skin edges and Steri-Strips were placed. Dry sterile dressings were used with Tegaderm. At the end of the case all sponge instrument needle counts were correct. Estimated blood loss was about 5 cc. Specimens sent was the gallbladder. Patient was extubated and returned stable to the recovery room
[2025-06-21] MEDS: 0.9 % Sodium Chloride Flush 3 ML SYRINGE IVFLUSH (16:27)
[2025-06-22 03:23] VITALS: BP 101/51; PULSE 70; RESP 18; TEMP 36.4; O2SAT 96
[2025-06-22 07:09] LABS: Hematocrit 37.3 % (37.0-47.0); Hemoglobin 11.6 g/dl (12.0-16.0); Mean Corpuscular HGB Conc 31.1 g/dl (31.0-35.0); Mean Corpuscular Hemoglobin 25.5 pg (27.0-33.0); Mean Corpuscular Volume 82.0 fL (80.0-98.0); NRBC Abs Auto 0.000 X10*3/uL (0.0-0.012); NRBC Pct Auto 0.0 /100WBC (0.0-0.2); Platelet Count 366 X10*3/uL (160-400); Red Blood Count 4.55 X10*6/uL (4.20-5.50); White Blood Count 10.9 X10*3/uL (4.8-10.8)
[2025-06-22 07:30] LABS: Alanine Aminotransferase 295 U/L (0-31); Albumin Level 3.8 g/dL (3.5-5.0); Alkaline Phosphatase 133 U/L (39-117); Anion Gap 8 (12-20); Aspartate Amino Transferase 58 U/L (5-31); Blood Urea Nitrogen 5 mg/dL (9-16); Calcium 9.2 mg/dL (8.4-10.2); Carbon Dioxide 24 mmol/L (22-29); Chloride 111 mmol/L (96-108); Creatinine Clr Calc Pharmacy 119.8; Estimated Glomerular Filt Rate > 60; Potassium 4.1 mmol/L (3.3-5.1); Sodium 139 mmol/L (135-145); Total Protein 7.2 g/dL (6.5-8.0)
[2025-06-22 08:21] VITALS: BP 98/61; PULSE 62; RESP 16; TEMP 36.9; O2SAT 98
[2025-06-22] MEDS: Dextrose 5 % and 0.45 % NaCl 1,000 ML 100 ML IVCONT (08:24)
--- NOTE | 2025-06-22 09:14 | HO.POSTANES ---
Post Anesthesia Evaluation Post Anesthesia Evaluation Date of Service: 06/22/25 Vital Signs: Vital Signs Temp Pulse Resp BP Pulse Ox O2 Del Method 06/22/25 08:21 98.4 F 62 16 98/61 98 Room Air 06/22/25 03:23 97.6 F 70 18 101/51 L 96 Room Air 06/21/25 23:33 97.8 F 80 18 117/69 98 Room Air Anesthesia: General Endotracheal-GETA Mental Status: Awake Pain Control: Satisfactory Nausea/Vomiting: None Hydration: Adequate Anesthesia-Related Issues: No Anes. Related Issues
--- NOTE | 2025-06-22 11:35 | MHC.CM.PN ---
LARRY PT WILL DC HOME WHERE SHE LIVES W/MOM, PT WILL ARRANGE TRANSPORT
--- NOTE | 2025-06-22 11:58 | PM.DS ---
DS: Providers Provider Date of Service: 06/22/25 Date of admission: 06/20/25 00:16 Date of discharge: 06/22/25 Primary care physician: None Physician Admitting clinician: Leon Sylvester Consults: 06/20/25 00:15 Consult to Gastroenterology Routine Consulting Provider: [facility] Gastroenterology Services Reason for consultation: choledocholithiasis 06/20/25 13:36 Consult to General Surgery Routine Consulting Provider: [facility] General Surgeons Reason for consultation: gallstones, need CCY Attending physician on discharge: Opal Bose DS: Diagnosis Discharge Diagnosis (1) Elevated LFTs: Status: Acute (2) Gallstone: Status: Acute (3) Abdominal pain: Status: Acute DS: Summary Hospital Course Hospital Course: Pt is a 20 minda old female admitted with abdominal pain and elevated lfts . MRCP did not show CBD stones or anything significant -? mild cholecystitits with surrounding fluid. Next day labs improving but still a little tender but feeling well- underwent lap prema with findings consistent with some acut on chronic cholecystitis. Pt doing better and dc home on POD#1 with bilirubin normal and other labs close to approaching normal. Status at Discharge Cognitive/behavioral status at discharge: good Functional status at discharge: independent ambulation Overall status at discharge: patient is progressing back to baseline Time Attestation Total time managing care of this patient today: 20 mintues. Discharge Coordination Time (in mins): 20 Quality: Safe Use of Opioids Does Pt have an Active Cancer Diagnosis on the Problem List?: No Quality: Stroke Does the patient have a stroke diagnosis?: No Physical Exam Vital Signs: Vital Signs: Last Vital Signs Temp 98.4 F 06/22/25 08:21 Pulse 62 06/22/25 08:21 Resp 16 06/22/25 08:21 BP 98/61 06/22/25 08:21 Pulse Ox 98 06/22/25 08:21 O2 Del Method Room Air 06/22/25 08:21 O2 Flow Rate 6 06/21/25 15:50 BMI result Body Mass Index 30.2 Const: General: cooperative, healthy appearing, comfortable and no acute distress Resp: Effort & Inspection: normal respiratory effort Auscultation: clear to auscultation bilaterally Cardio: Rate: regular rate Rhythm: regular rhythm GI: Other: soft nontender incisions look good DS: Data Data Completed and Pending Pending studies at discharge: Pending at discharge 06/21/25 15:21 Surgical [PTH] Routine Labs on day of discharge: Laboratory Results - last 24 hr 06/22/25 06:33 WBC 10.9 H RBC 4.55 Hgb 11.6 L Hct 37.3 MCV 82.0 MCH 25.5 L MCHC 31.1 RDW 14.4 Plt Count 366 MPV 10.1 Absolute Nucleated RBC 0.000 Nucleated RBC % (auto) 0.0 Sodium 139 Potassium 4.1 Chloride 111 H Carbon Dioxide 24 Anion Gap 8 L BUN 5 L Creatinine 0.71 Estim Creat Clear Calc 119.8 Estimated GFR > 60 Random Glucose 138 H Calcium 9.2 Total Bilirubin 0.4 AST 58 H ALT 295 H Alkaline Phosphatase 133 H Total Protein 7.[address] scan - pelvis: Radiologist's impression: ITS Impressions Cholangiopancreatography MRI 06/20/25 11:58 IMPRESSION: 1. Cholelithiasis and a small amount of pericholecystic fluid. If there is clinical concern for acute cholecystitis, HIDA scan could be performed. 2. No evidence of choledocholithiasis. Electronically signed by: Sonu Hart MD 06/20/2025 12:52 PM EDT RP Discharge Plan Discharge Anticipated Discharge Date/Time: 06/22/25 11:54 Patient Disposition: Home, Self-Care Discharge Diagnosis: cholecystitis Referrals: Leon Sylvester MD [Physician, General Surgery] - 1 Week Physician,None [Primary Care Provider, Medical] - 1 Week Discharge Medications: New acetaminophen 325 mg Tablet 650 mg PO Q6H PRN (Reason: Pain, Mild 1-3,Fever,Headache) Qty: 10 0RF Discharge Orders: Discharge Order (Routine); Ordered 06/22/25 Ordered By: Opal Bose Diet: Low fat, low cholesterol Activity on Discharge: No heavy lifting Stand Alone Forms: Patient Portal Discharge page, Work/School Release Print Language: [place] Activity Restrictions/Additional Instructions: If the incision area is tender, you may apply an ice pack for short intervals (No more than 20 minutes on, followed by at least 20 minutes off). Do not apply heat. Do not use creams, lotions, or topical antibiotics. Ok to shower. Remove clear dressings 3 days following your procedure. You have steri strips (small white strips) covering your incision- these will fall off ~1 week. No heavy lifting (>10lbs) or strenuous activity! Take Tylenol Extra-strength 1-2 tabs every 6 hours for the first day, then as needed. Oxycodone every 6-8 hours as needed for pain. Colace 100 mg every day as needed for constipation. Follow up in office with Dr. Sylvester in 1 week. ([phone]) Call Your Doctor If: -Your temperature exceeds 101.5? F -You experience excessive pain or swelling -You have an unexpected reaction to medication -You have excessive bleeding -You experience continued vomiting/nausea -Your incision begins to separate -Your incision shows signs of infection such as increased redness, swelling, excessive pain, drainage (light blood or clear fluid is normal) or heat Care Plan Goals: low fat diet no heavy lifting greater than 10 lbs until seen by MD Health Concerns: see above Plan of Treatment: can shower with tegaderm on and take off dressings in 2 days Assessment: doing well bijan lloyd POD#1 Discharge Date/Time: 06/22/25 12:58
== END 2025-06-22 12:58 | disposition home or self-care (01) | DRG 263 ==
LOC: HO.ED 23:43 → HO.EDOVER 06-20 00:39 → HO.S3 06-20 16:17
PROVIDERS: Hospitalist; Internal Medicine; Surgery; Emergency Provider Emergency Medicine
PROC: 0FT44ZZ Resection of Gallbladder, Percutaneous Endoscopic Approach (ICD-10-PCS; CPT 47562; principal; 2025-06-21 13:30)
DX: K81.0 Acute cholecystitis (principal); F17.210 Nicotine dependence, cigarettes, uncomplicated; R74.01 Elevation of levels of liver transaminase levels; Z71.6 Tobacco abuse counseling
CPT/HCPCS: 36415; 74181; 80053; 80076; 83690; 84702; 85025; 85027; 86704; 86706; 86709; 86803; 87340; 88304; 99285; J0131; J0525; J1100; J1650; J2003; J2250; J2405; J2704; J3010

== ENCOUNTER 2025-06-20 00:16 | Outpatient (BNV) | payer MEDICAID, SELFPAY | END 2025-06-20 11:58 | PROVIDERS: Admitting Provider Hospitalist; Emergency Provider Emergency Medicine; Visit Provider Radiology Diagnostic Radiology | DX: K80.20 Calculus of gallbladder without cholecystitis without obstruction (principal) | CPT/HCPCS: 74181 ==

== ENCOUNTER → 2025-06-20 00:16 | Outpatient (BNV) | payer MEDICAID, SELFPAY | PROVIDERS: Admitting Provider Hospitalist; Emergency Provider Emergency Medicine; Visit Provider Internal Medicine Gastroenterology | DX: R79.89 Other specified abnormal findings of blood chemistry (principal); K80.00 Calculus of gallbladder with acute cholecystitis without obstruction; R10.11 Right upper quadrant pain | CPT/HCPCS: 99222 ==

== ENCOUNTER → 2025-06-20 00:16 | Outpatient (BNV) | payer MEDICAID, SELFPAY | PROVIDERS: Admitting Provider Hospitalist; Emergency Provider Emergency Medicine; Visit Provider Internal Medicine | DX: R10.11 Right upper quadrant pain (principal) | CPT/HCPCS: 99223 ==

== ENCOUNTER → 2025-06-20 00:16 | Outpatient (BNV) | payer MEDICAID, SELFPAY | PROVIDERS: Admitting Provider Hospitalist; Emergency Provider Emergency Medicine; Visit Provider Surgery | DX: K80.00 Calculus of gallbladder with acute cholecystitis without obstruction (principal) | CPT/HCPCS: 47562 ==